=== PATIENT | male | born 1990 ===

== ENCOUNTER 2017-06-24 20:43 | Emergency (ER) | payer MEDICAID ==
--- NOTE | 2017-06-24 22:42 | ED PDOC ---
HPI: Psych/Substance Abuse Time Seen by Provider: 06/24/17 21:16 Chief Complaint (Nursing): Psychiatric Evaluation Chief Complaint (Provider): Psychiatric Evaluation History Per: Patient, EMS History/Exam Limitations: no limitations Current Symptoms Are (Timing): Still Present Additional Complaint(s): Giovanna is a 26 year old male who presents to the ED with psychiatric evaluation brought in by EMS. As per patient, someone called mobile crisis and brought him here. According to the mobile crisis, mother lives with patient and states patient has bizarre behavior where he talks to himself. Patient was aggressive last week. Denies any other complaints at this time. No HI or SI, depression, hearing voices or any visual hallucinations. Patient is not taking medications. PMD: Provider TBD Past Medical History Reviewed: Historical Data, Nursing Documentation, Vital Signs Vital Signs: Last Vital Signs Temp 99.5 F 06/24/17 20:52 Pulse 110 H 06/24/17 20:52 Resp 18 06/24/17 20:52 BP 159/104 H 06/24/17 20:52 Pulse Ox 99 06/24/17 20:52 - Medical History PMH: No Chronic Diseases - Surgical History Surgical History: No Surg Hx - Family History Family History: States: Unknown Family Hx - Living Arrangements Living Arrangements: Other (With Mom) - Allergies Allergies/Adverse Reactions: Allergies Allergy/AdvReac Type Severity Reaction Status Date / Time No Known Allergies Allergy Verified 06/24/17 20:51 Review of Systems ROS Statement: Except As Marked, All Systems Reviewed And Found Negative Psych: Negative for: Depression, Suicidal ideation, Other (hearing voices or any visual hallucinations) Physical Exam - Reviewed Nursing Documentation Reviewed: Yes Vital Signs Reviewed: Yes - Physical Exam Appears: Positive for: Non-toxic Head Exam: Positive for: ATRAUMATIC, NORMAL INSPECTION, NORMOCEPHALIC Skin: Positive for: Normal Color, Warm, Dry Eye Exam: Positive for: EOMI, Normal appearance, PERRL ENT: Positive for: Normal ENT Inspection Neck: Positive for: Normal Cardiovascular/Chest: Positive for: Regular Rate, Rhythm Respiratory: Positive for: Normal Breath Sounds. Negative for: Respiratory Distress Gastrointestinal/Abdominal: Positive for: Normal Exam Back: Positive for: Normal Inspection Extremity: Positive for: Normal ROM. Negative for: Deformity Neurologic/Psych: Positive for: Alert, Oriented (x 3) - Laboratory Results Result Diagrams: 06/24/17 23:40 06/24/17 23:40 - ECG O2 Sat by Pulse Oximetry: 99 (RA) Pulse Ox Interpretation: Normal Medical Decision Making Medical Decision Making: Time: 22:02 Impression(s): Psychiatric evaluation Differentials include, but not limited to: acute psychosis, bipolar disorder, Schizophrenia Plan: - Crisis Evaluation Labs EKG 0120 [facility] [place]. Vital signs are stable. Labs reviewed. In my opinion there are no current acute medical conditions that contraindicate the placement of this patient in a psychiatric unit. 0500 Patient is accepted by [facility] bed. Scribe Attestation: Documented by Jovani Leon, acting as a scribe for Kojo Son MD. Provider Scribe Attestation: All medical record entries made by the Scribe were at my direction and personally dictated by me. I have reviewed the chart and agree that the record accurately reflects my personal performance of the history, physical exam, medical decision making, and the department course for this patient. I have also personally directed, reviewed, and agree with the discharge instructions and disposition. Disposition - Clinical Impression Clinical Impression: Psychosis - Patient ED Disposition Is Patient to be Admitted: Transfer of Care Counseled Patient/Family Regarding: Studies Performed, Diagnosis - Disposition Disposition: Transfer of Care Disposition Time: 07:00 Condition: STABLE Forms: [employer] (Greek) Patient Signed Over To: Jesus Tucker Present On Arrival: None
[2017-06-25 00:07] LABS: BASO # 0.1 K/uL (0.0-0.2); BASO % 0.9 % (0.0-2.0); EOS # 0.1 K/uL (0.0-0.7); EOS % 1.3 % (0.0-4.0); HEMOGLOBIN 15.9 g/dL (12.0-18.0); LYMPH # 1.4 K/uL (1.0-4.3); LYMPH % 24.4 % (20.0-40.0); MEAN CELL VOLUME 84.1 fl (80.0-94.0); MEAN CORPUSCULAR HEMOGLOBIN 27.9 pg (27.0-31.0); MEAN CORPUSCULAR HGB CONC 33.2 g/dL (33.0-37.0); MEAN PLATELET VOLUME 7.7 fl (7.2-11.7); MONO # 0.5 K/uL (0.0-0.8); MONO % 8.9 % (0.0-10.0); NEUT # 3.8 K/uL (1.8-7.0); NEUT % 64.5 % (50.0-75.0); NRBC % 0.2 % (0.0-0.0); RBC 5.69 Mil/uL (4.40-5.90); RED CELL DISTRIBUTION WIDTH 13.5 % (11.5-14.5); WHITE BLOOD COUNT 5.9 K/uL (4.8-10.8)
[2017-06-25 00:14] LABS: ACETAMINOPHEN < 10.0 ug/ml (10.0-30.0); BLOOD UREA NITROGEN 15 mg/dl (9-20); GFR AFRICAN-AMERICAN > 60; GFR NON-AFRICAN AMERICAN > 60; SALICYLATE < 1.0 mg/dl
[2017-06-25 00:53] LABS: URINE BILIRUBIN NEGATIVE (NEGATIVE); URINE BLOOD NEGATIVE (NEGATIVE); URINE CLARITY CLEAR (Clear); URINE COLOR YELLOW (YELLOW); URINE GLUCOSE (UA) NEG (Normal); URINE LEUKOCYTE ESTERASE NEG Leu/uL (Negative); URINE PROTEIN NEGATIVE (NEGATIVE); URINE UROBILINOGEN 0.2-1.0 mg/dL (0.2-1.0)
[2017-06-25 01:19] LABS: BARBITURATES, UR NEGATIVE (NEGATIVE); BENZODIAZEPINES, UR NEGATIVE (NEGATIVE); OPIATES, UR NEGATIVE (NEGATIVE); PHENCYCLIDINE, UR NEGATIVE (NEGATIVE)
--- NOTE | 2017-06-25 07:38 | ED PDOC ---
- Laboratory Results Result Diagrams: 06/24/17 23:40 06/24/17 23:40 - ECG O2 Sat by Pulse Oximetry: 99 (RA) Pulse Ox Interpretation: Normal - Radiology X-Ray: Interpreted by Me X-Ray Interpretation: No Acute Disease - Progress ED Course And Treament: no acute issues during my shift Re-evaluation Time: 17:00 Condition: Unchanged Medical Decision Making Medical Decision Making: Time: 0700 --Patient was endorsed to provider from Dr. Kojo Son. Pending bed availability at [facility]. Scribe Attestation: Documented by Lisa Palacio, acting as a scribe for Jesus Tucker MD. Provider Scribe Attestation: All medical record entries made by the Scribe were at my direction and personally dictated by me. I have reviewed the chart and agree that the record accurately reflects my personal performance of the history, physical exam, medical decision making, and the department course for this patient. I have also personally directed, reviewed, and agree with the discharge instructions and disposition. Disposition Counseled Patient/Family Regarding: Studies Performed, Diagnosis - Clinical Impression Clinical Impression: Psychosis - POA Present On Arrival: None - Disposition Disposition: Transfer of Care Disposition Time: 17:00 Condition: STABLE Forms: [employer] (Croatian) Psych Transfer Clearance - Clearance Statement Clearance Statement: Reviewed vital signs, lab results and transfer papers. Patient clinically stable for psychiatric admission.
--- NOTE | 2017-06-25 08:23 | RAD ---
HISTORY: crisis clearance COMPARISON: No prior. FINDINGS: LUNGS: The lungs are well inflated and clear. PLEURA: No significant pleural effusion identified, no pneumothorax apparent. CARDIOVASCULAR: Normal. OSSEOUS STRUCTURES: No significant abnormalities. VISUALIZED UPPER ABDOMEN: Normal. OTHER FINDINGS: None. IMPRESSION: No active pulmonary disease.
--- NOTE | 2017-06-25 11:40 | CARD ---
APPROVED REPORT EKG Measurement Heart [id number] <Conclusion> Sinus tachycardia Otherwise normal ECG
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
--- NOTE | 2017-06-26 06:47 | ED PDOC ---
- Laboratory Results Result Diagrams: 06/24/17 23:40 06/24/17 23:40 - ECG O2 Sat by Pulse Oximetry: 99 (RA) Pulse Ox Interpretation: Normal Medical Decision Making Medical Decision Makin signout from Dr Aguilar [place] [facility] [place] 0300 pt stable [address] martinez pending [facility] [place] Disposition - Clinical Impression Clinical Impression: Psychosis - POA Present On Arrival: None - Disposition Disposition: Transfer of Care Disposition Time: 07:00 Condition: STABLE Patient Signed Over To: Shira Martinez Handoff Comments: pending [facility] [place]
--- NOTE | 2017-06-26 16:25 | ED PDOC ---
- Laboratory Results Result Diagrams: 06/24/17 23:40 06/24/17 23:40 - ECG O2 Sat by Pulse Oximetry: 99 Medical Decision Making Medical Decision Making: received patient from Dr. Barajas. Patient cleared for transfer to [facility] [place]. She has been stable throughout the day. Will endorse to Dr. Son. Disposition - Clinical Impression Clinical Impression: Psychosis - POA Present On Arrival: None - Disposition Disposition: Transfer of Care Disposition Time: 16:25 Condition: STABLE Forms: [employer] (Niuean)
[2017-06-27 07:16] VITALS: BP 130/64; PULSE 81; RESP 18; TEMP 98; O2SAT 99
--- NOTE | 2017-06-27 08:06 | ED PDOC ---
- Laboratory Results Result Diagrams: 06/24/17 23:40 06/24/17 23:40 - ECG O2 Sat by Pulse Oximetry: 99 Medical Decision Making Medical Decision Makin:00 -Patient was endorsed to me by Dr. Luna, pending bed availability at [facility] [place]. Disposition Counseled Patient/Family Regarding: Studies Performed, Diagnosis - Clinical Impression Clinical Impression: Psychosis - POA Present On Arrival: None - Disposition Disposition: Other Institution ([facility] [place]) Disposition Time: 08:17 Condition: STABLE
== END 2017-06-27 09:49 | disposition short-term general hospital (02) ==
LOC: H.ER 20:43
DX: F20.1 Disorganized schizophrenia (principal); Z00.8 Encounter for other general examination